=== PATIENT | female | born 1935 | race Caucasian/White ===

== ENCOUNTER → 2017-11-30 | Outpatient (CLI) | payer MEDICARE ==
--- NOTE | 2017-11-30 14:22 | Diagnostic Imaging Report ---
PROCEDURE: Frontal and lateral views of the chest. COMPARISON: Patients [facility], DX, CHEST 2 VIEWS, 12/22/2013, 11:57. Patients [facility], DX, CHEST 2 VIEWS, 04/14/2015, 13:01. INDICATIONS: SHORTNESS OF BREATH FINDINGS: Lines/tubes: None. Lungs: The lungs are well inflated. Stable 5-6 mm nodular density in the left upper to mid lung since 2013, likely representing a calcified granuloma. There is no evidence of pneumonia or pulmonary edema. Pleura: There is no pleural effusion or pneumothorax. Heart and mediastinum: Stable mild enlargement of the cardiac silhouette, with prominence of the left ventricle. Pulmonary vasculature is normal. Bones: No acute bony abnormality. Degenerative changes in the thoracic spine. Generalized osteopenia. IMPRESSION: 1. stable mild enlargement of the cardiac silhouette, without acute cardiopulmonary abnormalities. Tye Gaston M.D. Dictated by: Tye Gaston M.D. on 11/30/2017 at 14:26 Electronically approved by: Tye Gaston M.D. on 11/30/2017 at 14:26
== END ==
LOC: RAD 12:39
PROVIDERS: ATTEND Family Medicine
DX: R06.02 Shortness of breath (principal)
CPT/HCPCS: 71046

== ENCOUNTER → 2018-02-28 | Outpatient (CLI) | payer MEDICARE ==
--- NOTE | 2018-02-28 11:37 | Diagnostic Imaging Report ---
Radiographs of the sinuses - 4 views HISTORY: Headache COMPARISON: None available. FINDINGS: Bones: No acute displaced fracture. Osseous alignment is within normal limits. Joints: The joint spaces are well-maintained. Soft tissues: Apparent mucosal thickening in the maxillary sinuses IMPRESSION: Apparent mucosal thickening in the maxillary sinuses. CT scan of the sinuses may be of benefit. Signed by: Dr. Chad Aguirre M.D. on 02/28/2018 11:33 AM
--- NOTE | 2018-02-28 12:00 | Diagnostic Imaging Report ---
Radiographs of the lumbar spine - 6 views with bilateral obliques. Radiographs of the thoracic spine 3 views HISTORY: Pain COMPARISON: None available. FINDINGS: Bones: No acute displaced fracture. Mild rotatory scoliosis concave to the right centered at L3. Joints: Scattered degenerative changes are seen about the thoracic and lumbar spine. This is most pronounced at L3/4. No pars interarticularis defects. Moderate facet arthrosis at the lower lumbar spine. Soft tissues: Scattered vascular calcifications. IMPRESSION: Scattered degenerative changes are seen about the thoracic and lumbar spine. This is most pronounced at L3/4. No pars interarticularis defects. Moderate facet arthrosis at the lower lumbar spine. Mild rotatory scoliosis concave to the right centered at L3. Signed by: Dr. Chad Aguirre M.D. on 02/28/2018 11:56 AM
== END ==
LOC: RAD 10:05
PROVIDERS: ATTEND Family Medicine
DX: R51 Headache (principal); M54.6 Pain in thoracic spine; M54.5 Low back pain
CPT/HCPCS: 70220; 72070; 72110

== ENCOUNTER → 2019-01-01 | Outpatient (CLI) | payer MEDICARE ==
--- NOTE | 2019-01-01 13:44 | Diagnostic Imaging Report ---
EXAMINATION: PA and lateral views of the chest. COMPARISON: Thoracic spine views 02/28/2018 CLINICAL HISTORY: Shortness of breath, mild chest pain when walking long distance, CHF DISCUSSION: Lines/tubes: None. Lungs: The lungs are well inflated. Stable 3 mm nodular density projecting over the posterolateral aspect of the right fifth rib in the right upper lobe. There is no evidence of pneumonia or pulmonary edema. Pleura: There is no pleural effusion or pneumothorax. Heart and mediastinum: Mild enlargement of the cardiac silhouette. Pulmonary vasculature is normal. Atherosclerotic calcification of a tortuous thoracic aorta. Bones and soft tissues: No acute bony abnormalities. Degenerative changes in the thoracic spine IMPRESSION: Mild enlargement of the cardiac silhouette, without acute cardiopulmonary abnormalities. Stable 3 mm nodular density in the right upper lobe, which may represent a calcified granuloma. Recommend chest PA and lateral in 6-12 months to document stability. Signed by: Dr. Tye Gaston M.D. on 01/01/2019 1:41 PM
== END ==
LOC: RAD 11:31
PROVIDERS: ATTEND Internal Medicine
DX: I50.9 Heart failure, unspecified (principal)
CPT/HCPCS: 71046

== ENCOUNTER → 2020-06-14 | Outpatient (CLI) | payer MEDICARE | LOC: RAD 11:38 | PROVIDERS: ATTEND Internal Medicine | DX: I50.32 Chronic diastolic (congestive) heart failure (principal); M54.5 Low back pain | CPT/HCPCS: 71046; 72100 ==

== ENCOUNTER → 2020-10-05 | Outpatient (CLI) | payer MEDICARE | LOC: RAD 12:45 | PROVIDERS: ATTEND Internal Medicine | DX: S30.0XXA Contusion of lower back and pelvis, initial encounter (principal) | CPT/HCPCS: 72100; 72220 ==

== ENCOUNTER → 2020-10-08 | Outpatient (CLI) | payer MEDICARE | LOC: RAD 09:38 | PROVIDERS: ATTEND Internal Medicine | DX: S30.0XXA Contusion of lower back and pelvis, initial encounter (principal) | CPT/HCPCS: 72170 ==

== ENCOUNTER 2021-02-26 18:04 | Emergency (ER) | payer MEDICARE ==
[~2021-02-26] VITALS: Ht 165.1 cm; Wt 65.8 kg
[2021-02-26] MEDS ORDERED: CASIRIVIMAB/IMDEVIMAB 10 ML in SODIUM CHLORIDE 0.9% 100 ML IV ONE (20:00)
== END 2021-02-26 21:12 | disposition home or self-care (01) ==
LOC: ER 18:10
DX: R53.83 Other fatigue (principal); I10 Essential (primary) hypertension; I48.91 Unspecified atrial fibrillation; Z20.822 Contact with and (suspected) exposure to COVID-19
CPT/HCPCS: 99283; J7050; U0002

== ENCOUNTER → 2021-12-26 | Outpatient (CLI) | payer MEDICARE ==
[~2021-12-26] MED LIST: CLINDAMYCIN HC300 MG PO
== END ==
LOC: US 09:20
PROVIDERS: ATTEND Internal Medicine
DX: R10.10 Upper abdominal pain, unspecified (principal)
CPT/HCPCS: 76705

== ENCOUNTER 2022-01-01 14:55 | Emergency (ER) | payer MEDICARE, OTHER ==
[~2022-01-01] VITALS: Ht 165.1 cm; Wt 65.8 kg
[2022-01-01] MEDS ORDERED: TRAMADOL HCL 50 MG TAB PO ONE (15:15)
[2022-01-01] MEDS ORDERED: CYCLOBENZAPRINE HCL 10 MG TAB PO ONE (15:30)
[2022-01-01] MEDS ORDERED: CYCLOBENZAPRINE5 MG PO (17:39)
== END 2022-01-01 18:55 | disposition home or self-care (01) ==
LOC: ER 15:07
DX: M54.50 Low back pain, unspecified (principal); W01.0XXA Fall on same level from slipping, tripping and stumbling without subsequent striking against object, initial encounter; Y92.89 Other specified places as the place of occurrence of the external cause; I10 Essential (primary) hypertension; I48.91 Unspecified atrial fibrillation; Z87.19 Personal history of other diseases of the digestive system
CPT/HCPCS: 71111; 72131; 74176; 99283

== ENCOUNTER 2022-01-05 12:31 | Inpatient (IN) | payer MEDICARE ==
[~2022-01-05] VITALS: Ht 165.1 cm; Wt 63.5 kg
[~2022-01-05 12:31] MED LIST changes: +CYCLOBENZAPRINE5 MG PO
[2022-01-05 14:59] VITALS: BP 153/85
[2022-01-05] MEDS ORDERED: HYDROMORPHONE 1MG/1ML INJ IV PRN (15:00)
[2022-01-05 15:03] VITALS: BP 153/85
[2022-01-05] MEDS ORDERED: DIATRIZOATE MEGL/DIATRIZOA SOD 30 ML BTL PO ONE (15:29)
[2022-01-05 15:33] LABS: BASOPHILS # (AUTO) 0.1 (0.0-0.1); BASOPHILS % 0.6 % (0.0-1.0); EOSINOPHILS # (AUTO) 0.1 (0.0-0.4); EOSINOPHILS % 0.8 % (0.0-6.0); HEMOGLOBIN 12.9 g/dL (12.0-16.0); LYMPHOCYTES # (AUTO) 1.1 (1.0-3.2); LYMPHOCYTES % 12.7 % (18.0-39.1); MEAN CORPUSCULAR HEMOGLOBIN 31.6 pg (28-32); MEAN CORPUSCULAR HGB CONC 35.8 g/dL (31-35); MEAN CORPUSCULAR VOLUME 88.2 fL (81-99); MONOCYTES # (AUTO) 1.1 (0.2-0.8); MONOCYTES % 12.4 % (4.4-11.3); NEUTROPHILS # (AUTO) 6.4 (2.1-6.9); NEUTROPHILS % 72.8 % (38.7-80.0); PLATELET COUNT 255 x10e3/uL (140-360); RED BLOOD COUNT 4.08 x10e6/uL (3.6-5.1)
[2022-01-05 15:57] LABS: ALBUMIN 3.3 g/dL (3.5-5.0); ALBUMIN/GLOBULIN RATIO 1.1 (0.8-2.0); ANION GAP 12.7 mmol/L (8-16); CALCIUM 8.3 mg/dL (8.4-10.2); CREATININE, SERUM 0.65 mg/dL (0.57-1.11); POTASSIUM 4.7 mmol/L (3.5-5.1)
[2022-01-05 15:58] VITALS: BP 153/85
[2022-01-05] MEDS ORDERED: CARAFATE1 GM PO (16:09)
[2022-01-05] MEDS ORDERED: ATENOLOL50 MG PO (16:12)
[2022-01-05] MEDS ORDERED: CYCLOBENZAPRINE10 MG PO (16:12)
[2022-01-05] MEDS ORDERED: ALLOPURINOL300 MG PO (16:12)
[2022-01-05] MEDS ORDERED: ELIQUIS2.5 MG PO (16:19)
[2022-01-05] MEDS ORDERED: BENICAR20 MG PO (16:20)
[2022-01-05] MEDS: SODIUM CHLORIDE 0.9% 1000ML 1,000 ML IV SCH (16:21)
[2022-01-05] MEDS ORDERED: PROTONIX20 MG PO (16:25)
[2022-01-05] MEDS ORDERED: FAMOTIDINE20 MG PO (16:28)
[2022-01-05] MEDS ORDERED: CIPRO250 MG PO (16:29)
[2022-01-05] MEDS ORDERED: METRONIDAZOLE250 MG PO (16:30)
[2022-01-05] MEDS ORDERED: PRESERVISION A1 EAC2 PO (16:33)
[2022-01-05] MEDS ORDERED: D3-5000125 MCG PO (16:33)
[2022-01-05] MEDS ORDERED: IOPAMIDOL 370 MG/ML 100 ML INFUS..BTL INJ ONE (16:36)
[2022-01-05] MEDS ORDERED: STOOL SOFTENER1 EAC2 PO (16:37)
[2022-01-05 20:00] VITALS: BP_SYST 142; BP_SYST 153; BP_DIAS 73; BP_DIAS 85
[2022-01-05 20:22] LABS: AMYLASE 19 U/L (25-125); LIPASE 12 U/L (8-78)
[2022-01-05 20:24] LABS: BLOOD UREA NITROGEN 9 mg/dL (7-26); GLUCOSE 95 mg/dL (74-118); OSMOLALITY,SERUM 235 mOsm/kg (278-305)
[2022-01-05 20:40] LABS: SODIUM 117 mmol/L (136-145)
[2022-01-05 20:41] LABS: THYROID STIMULATING HORMONE 1.745 uIU/mL (0.350-4.940)
[2022-01-05] MEDS: SENNOSIDES 8.6 MG TAB PO SCH (21:09)
[2022-01-05] MEDS: ATENOLOL 50 MG TAB PO SCH (21:11)
[2022-01-05] MEDS: ONDANSETRON HCL INJ 2MG/ML 2ML 2 MG/ML VIAL IV PRN (21:12)
[2022-01-06] VITALS: BP 121/68
[2022-01-06 04:00] VITALS: BP 161/72
[2022-01-06 04:49] LABS: BASOPHILS # (AUTO) 0.1 (0.0-0.1); BASOPHILS % 0.6 % (0.0-1.0); EOSINOPHILS # (AUTO) 0.1 (0.0-0.4); EOSINOPHILS % 1.2 % (0.0-6.0); HEMATOCRIT 36.8 % (34.2-44.1); LYMPHOCYTES # (AUTO) 1.8 (1.0-3.2); LYMPHOCYTES % 18.2 % (18.0-39.1); MEAN CORPUSCULAR HEMOGLOBIN 31.4 pg (28-32); MEAN CORPUSCULAR HGB CONC 35.3 g/dL (31-35); MEAN CORPUSCULAR VOLUME 88.9 fL (81-99); MONOCYTES # (AUTO) 1.7 (0.2-0.8); MONOCYTES % 17.3 % (4.4-11.3); NEUTROPHILS # (AUTO) 6.2 (2.1-6.9); NEUTROPHILS % 62.1 % (38.7-80.0); PLATELET COUNT 281 x10e3/uL (140-360); RED BLOOD COUNT 4.14 x10e6/uL (3.6-5.1); RED CELL DISTRIBUTION WIDTH 12.4 % (11.7-14.4)
[2022-01-06] MEDS: SODIUM CHLORIDE 0.9% 1000ML 1,000 ML IV SCH ×2 (04:50→07:45)
[2022-01-06 05:20] LABS: ALBUMIN 3.5 g/dL (3.5-5.0); ALBUMIN/GLOBULIN RATIO 0.9 (0.8-2.0); ANION GAP 19.3 mmol/L (8-16); CALCIUM 8.5 mg/dL (8.4-10.2); CREATININE, SERUM 0.64 mg/dL (0.57-1.11); POTASSIUM 4.3 mmol/L (3.5-5.1)
[2022-01-06 08:10] LABS: CLARITY,URINE CLEAR (CLEAR); COLOR,URINE YELLOW (YELLOW); LEUKOCYTE ESTERASE ,URINE NEGATIVE (NEGATIVE); NITRITE,URINE NEGATIVE (NEGATIVE)
[2022-01-06 08:11] LABS: BACTERIA,URINE FEW /HPF; EPITHELIAL CELLS,URINE FEW /LPF; KETONES,URINE NEGATIVE (NEGATIVE); PROTEIN,URINE DIPSTICK NEGATIVE (NEGATIVE); RBC,URINE 0-5 /HPF (0-5); URINE UROBILINOGEN 0.2 mg/dL (0.2 - 1); WBC,URINE (MAN) 0-5 /HPF (0-5)
[2022-01-06 08:40] LABS: POTASSIUM,URINE 9.3 mmol/L
[2022-01-06 08:47] LABS: SODIUM,URINE < 20 mmol/L
[2022-01-06] MEDS ORDERED: OLMESARTAN 20 MG TAB PO SCH (09:00)
[2022-01-06 09:09] VITALS: BP 161/73
[2022-01-06 09:24] VITALS: BP 161/73
[2022-01-06] MEDS: ATENOLOL 50 MG TAB PO SCH ×2 (09:37→16:50)
[2022-01-06] MEDS: SENNOSIDES 8.6 MG TAB PO SCH ×2 (09:38→21:25)
[2022-01-06] MEDS: PANTOPRAZOLE SOD 40 MG TABEC PO SCH (09:38)
[2022-01-06 12:21] VITALS: BP 170/74
[2022-01-06 20:00] VITALS: BP 141/81
[2022-01-06] MEDS ORDERED: FUROSEMIDE INJ 10 MG/ML 4 ML VIAL IV ONE (20:15)
[2022-01-06] MEDS: LEVOFLOXACIN 500MG/D5W 100ML 100 ML IV SCH (21:24)
[2022-01-06] MEDS: OLMESARTAN 20 MG TAB PO SCH (21:25)
[2022-01-06] MEDS: METRONIDAZOLE 250MG/NS 50ML 50 ML IV SCH (23:06)
[2022-01-06] MEDS ORDERED: SODIUM CHLORIDE 0.9% 100 ML ONE (23:08)
[2022-01-07] VITALS (7 sets, daily range): BP systolic 99–151; BP diastolic 58–69
[2022-01-07] MEDS: METRONIDAZOLE 250MG/NS 50ML 50 ML IV SCH ×3 (05:14→22:00)
[2022-01-07 05:51] LABS: BASOPHILS # (AUTO) 0.1 (0.0-0.1); BASOPHILS % 0.5 % (0.0-1.0); EOSINOPHILS # (AUTO) 0.1 (0.0-0.4); EOSINOPHILS % 0.9 % (0.0-6.0); HEMATOCRIT 42.4 % (34.2-44.1); LYMPHOCYTES # (AUTO) 1.4 (1.0-3.2); LYMPHOCYTES % 14.4 % (18.0-39.1); MEAN CORPUSCULAR HEMOGLOBIN 31.3 pg (28-32); MEAN CORPUSCULAR HGB CONC 36.1 g/dL (31-35); MEAN CORPUSCULAR VOLUME 86.7 fL (81-99); MONOCYTES # (AUTO) 1.3 (0.2-0.8); MONOCYTES % 12.8 % (4.4-11.3); NEUTROPHILS % 70.6 % (38.7-80.0); PLATELET COUNT 356 x10e3/uL (140-360); RED BLOOD COUNT 4.89 x10e6/uL (3.6-5.1)
[2022-01-07 06:10] LABS: HEMOGLOBIN 15.3 g/dL (12.0-16.0)
[2022-01-07 06:15] LABS: ANION GAP 17.9 mmol/L (8-16); CALCIUM 9.4 mg/dL (8.4-10.2); CREATININE, SERUM 0.8 mg/dL (0.57-1.11); POTASSIUM 4.9 mmol/L (3.5-5.1)
[2022-01-07] MEDS: PANTOPRAZOLE SOD 40 MG TABEC PO SCH (08:35)
[2022-01-07] MEDS: ATENOLOL 50 MG TAB PO SCH ×2 (08:35→16:39)
[2022-01-07] MEDS: SENNOSIDES 8.6 MG TAB PO SCH ×2 (08:35→21:00)
[2022-01-07] MEDS ORDERED: FUROSEMIDE INJ 10 MG/ML 4 ML VIAL IV ONE (09:15)
[2022-01-07] MEDS ORDERED: BISACODYL 5 MG TAB EC PO ONE (09:30)
[2022-01-07] MEDS ORDERED: MAGNESIUM HYDROXIDE 30 ML UDC PO ONE (09:30)
[2022-01-07] MEDS ORDERED: systane OU (11:29)
[2022-01-07] MEDS: HYDROCODONE/APAP 7.5MG-325MG 1 EA TAB PO PRN (12:40)
[2022-01-07] MEDS: SYSTANE EYE OP SCH ×2 (14:23→21:00)
[2022-01-07] MEDS: ONDANSETRON HCL INJ 2MG/ML 2ML 2 MG/ML VIAL IV PRN (14:30)
[2022-01-07] MEDS: LEVOFLOXACIN 500MG/D5W 100ML 100 ML IV SCH (20:30)
[2022-01-07] MEDS: OLMESARTAN 20 MG TAB PO SCH (21:00)
[2022-01-08] VITALS (8 sets, daily range): BP systolic 112–134; BP diastolic 57–82
[2022-01-08] MEDS: METRONIDAZOLE 250MG/NS 50ML 50 ML IV SCH ×3 (05:07→21:52)
[2022-01-08 06:24] LABS: BASOPHILS # (AUTO) 0.1 (0.0-0.1); BASOPHILS % 0.5 % (0.0-1.0); EOSINOPHILS # (AUTO) 0.1 (0.0-0.4); EOSINOPHILS % 1.2 % (0.0-6.0); HEMATOCRIT 41.2 % (34.2-44.1); HEMOGLOBIN 14.8 g/dL (12.0-16.0); LYMPHOCYTES # (AUTO) 1.9 (1.0-3.2); LYMPHOCYTES % 18.2 % (18.0-39.1); MEAN CORPUSCULAR HEMOGLOBIN 31.4 pg (28-32); MEAN CORPUSCULAR HGB CONC 35.9 g/dL (31-35); MEAN CORPUSCULAR VOLUME 87.5 fL (81-99); MONOCYTES # (AUTO) 1.4 (0.2-0.8); MONOCYTES % 13.3 % (4.4-11.3); NEUTROPHILS # (AUTO) 6.9 (2.1-6.9); PLATELET COUNT 323 x10e3/uL (140-360); RED BLOOD COUNT 4.71 x10e6/uL (3.6-5.1); RED CELL DISTRIBUTION WIDTH 12.1 % (11.7-14.4)
[2022-01-08 06:49] LABS: ALBUMIN 3.6 g/dL (3.5-5.0); ANION GAP 15.4 mmol/L (8-16); CALCIUM 9.1 mg/dL (8.4-10.2); CREATININE, SERUM 0.94 mg/dL (0.57-1.11); POTASSIUM 4.4 mmol/L (3.5-5.1)
[2022-01-08] MEDS: SENNOSIDES 8.6 MG TAB PO SCH ×2 (09:00→21:51)
[2022-01-08] MEDS: SYSTANE EYE OP SCH ×3 (09:00→21:00)
[2022-01-08] MEDS: PANTOPRAZOLE SOD 40 MG TABEC PO SCH (09:11)
[2022-01-08] MEDS: ATENOLOL 50 MG TAB PO SCH ×2 (09:12→16:45)
[2022-01-08] MEDS: SODIUM CHLORIDE 1 GM TAB PO SCH ×2 (14:03→21:50)
[2022-01-08] MEDS: ONDANSETRON HCL INJ 2MG/ML 2ML 2 MG/ML VIAL IV PRN (15:00)
[2022-01-08] MEDS: OLMESARTAN 20 MG TAB PO SCH (21:50)
[2022-01-08] MEDS: LEVOFLOXACIN 500MG/D5W 100ML 100 ML IV SCH (21:51)
[2022-01-09] VITALS (10 sets, daily range): BP systolic 115–154; BP diastolic 46–76
[2022-01-09] MEDS: HYDROCODONE/APAP 7.5MG-325MG 1 EA TAB PO PRN ×2 (05:36→18:33)
[2022-01-09] MEDS: METRONIDAZOLE 250MG/NS 50ML 50 ML IV SCH ×3 (05:37→20:42)
[2022-01-09 06:02] LABS: BASOPHILS % 0.5 % (0.0-1.0); EOSINOPHILS # (AUTO) 0.1 (0.0-0.4); EOSINOPHILS % 0.6 % (0.0-6.0); HEMATOCRIT 37.2 % (34.2-44.1); HEMOGLOBIN 13.7 g/dL (12.0-16.0); LYMPHOCYTES # (AUTO) 1.4 (1.0-3.2); LYMPHOCYTES % 16.2 % (18.0-39.1); MEAN CORPUSCULAR HEMOGLOBIN 31.8 pg (28-32); MEAN CORPUSCULAR HGB CONC 36.8 g/dL (31-35); MEAN CORPUSCULAR VOLUME 86.3 fL (81-99); MONOCYTES # (AUTO) 1.2 (0.2-0.8); MONOCYTES % 13.7 % (4.4-11.3); NEUTROPHILS # (AUTO) 5.9 (2.1-6.9); PLATELET COUNT 336 x10e3/uL (140-360); RED BLOOD COUNT 4.31 x10e6/uL (3.6-5.1); RED CELL DISTRIBUTION WIDTH 12.2 % (11.7-14.4)
[2022-01-09 06:18] LABS: ANION GAP 11.7 mmol/L (8-16); CALCIUM 8.4 mg/dL (8.4-10.2); CREATININE, SERUM 0.73 mg/dL (0.57-1.11); POTASSIUM 3.7 mmol/L (3.5-5.1)
[2022-01-09] MEDS: SENNOSIDES 8.6 MG TAB PO SCH ×2 (08:57→20:38)
[2022-01-09] MEDS: PANTOPRAZOLE SOD 40 MG TABEC PO SCH (08:57)
[2022-01-09] MEDS: SODIUM CHLORIDE 1 GM TAB PO SCH ×3 (08:57→20:38)
[2022-01-09] MEDS: ATENOLOL 50 MG TAB PO SCH ×2 (08:58→17:29)
[2022-01-09] MEDS: SYSTANE EYE OP SCH ×3 (09:00→20:42)
[2022-01-09] MEDS: APIXAB 2.5 MG TABLET PO SCH ×2 (11:06→17:28)
[2022-01-09] MEDS: LEVOFLOXACIN 500MG/D5W 100ML 100 ML IV SCH (20:41)
[2022-01-09] MEDS: OLMESARTAN 20 MG TAB PO SCH (20:41)
[2022-01-09] MEDS ORDERED: SODIUM CHLORIDE 0.9% 250ML 250 ML ONE (21:03)
[2022-01-10] VITALS (7 sets, daily range): BP systolic 115–167; BP diastolic 65–89
[2022-01-10] MEDS: METRONIDAZOLE 250MG/NS 50ML 50 ML IV SCH ×3 (05:41→21:26)
[2022-01-10 06:07] LABS: BASOPHILS # (AUTO) 0.1 (0.0-0.1); BASOPHILS % 0.6 % (0.0-1.0); EOSINOPHILS # (AUTO) 0.1 (0.0-0.4); EOSINOPHILS % 0.9 % (0.0-6.0); HEMATOCRIT 37.7 % (34.2-44.1); HEMOGLOBIN 13.3 g/dL (12.0-16.0); LYMPHOCYTES # (AUTO) 1.5 (1.0-3.2); LYMPHOCYTES % 15.8 % (18.0-39.1); MEAN CORPUSCULAR HEMOGLOBIN 31.3 pg (28-32); MEAN CORPUSCULAR HGB CONC 35.3 g/dL (31-35); MEAN CORPUSCULAR VOLUME 88.7 fL (81-99); MONOCYTES # (AUTO) 1.3 (0.2-0.8); MONOCYTES % 13.5 % (4.4-11.3); NEUTROPHILS # (AUTO) 6.3 (2.1-6.9); NEUTROPHILS % 68.4 % (38.7-80.0); PLATELET COUNT 328 x10e3/uL (140-360); RED BLOOD COUNT 4.25 x10e6/uL (3.6-5.1); RED CELL DISTRIBUTION WIDTH 12.3 % (11.7-14.4)
[2022-01-10 06:45] LABS: ANION GAP 13.1 mmol/L (8-16); CALCIUM 8.3 mg/dL (8.4-10.2); CREATININE, SERUM 0.7 mg/dL (0.57-1.11); POTASSIUM 4.1 mmol/L (3.5-5.1)
[2022-01-10] MEDS: PANTOPRAZOLE SOD 40 MG TABEC PO SCH (09:17)
[2022-01-10] MEDS: ATENOLOL 50 MG TAB PO SCH ×2 (09:17→17:09)
[2022-01-10] MEDS: SENNOSIDES 8.6 MG TAB PO SCH ×2 (09:17→21:24)
[2022-01-10] MEDS: SODIUM CHLORIDE 1 GM TAB PO SCH ×3 (09:17→21:25)
[2022-01-10] MEDS: APIXAB 2.5 MG TABLET PO SCH ×2 (09:17→17:09)
[2022-01-10] MEDS: SYSTANE EYE OP SCH ×3 (09:18→21:27)
[2022-01-10] MEDS: LEVOFLOXACIN 500MG/D5W 100ML 100 ML IV SCH (21:24)
[2022-01-10] MEDS: OLMESARTAN 20 MG TAB PO SCH (21:25)
[2022-01-11] VITALS (7 sets, daily range): BP systolic 120–181; BP diastolic 52–96
[2022-01-11] MEDS: METRONIDAZOLE 250MG/NS 50ML 50 ML IV SCH ×2 (00:03→06:13)
[2022-01-11 06:22] LABS: BASOPHILS # (AUTO) 0.1 (0.0-0.1); BASOPHILS % 0.9 % (0.0-1.0); EOSINOPHILS # (AUTO) 0.1 (0.0-0.4); EOSINOPHILS % 1.5 % (0.0-6.0); HEMATOCRIT 35.3 % (34.2-44.1); HEMOGLOBIN 12.5 g/dL (12.0-16.0); LYMPHOCYTES # (AUTO) 1.7 (1.0-3.2); LYMPHOCYTES % 19.3 % (18.0-39.1); MEAN CORPUSCULAR HEMOGLOBIN 31.3 pg (28-32); MEAN CORPUSCULAR HGB CONC 35.4 g/dL (31-35); MEAN CORPUSCULAR VOLUME 88.5 fL (81-99); MONOCYTES # (AUTO) 1.1 (0.2-0.8); MONOCYTES % 12.9 % (4.4-11.3); NEUTROPHILS # (AUTO) 5.6 (2.1-6.9); NEUTROPHILS % 64.5 % (38.7-80.0); PLATELET COUNT 316 x10e3/uL (140-360); RED BLOOD COUNT 3.99 x10e6/uL (3.6-5.1); RED CELL DISTRIBUTION WIDTH 12.5 % (11.7-14.4)
[2022-01-11 06:57] LABS: ANION GAP 11.2 mmol/L (8-16); CREATININE, SERUM 0.71 mg/dL (0.57-1.11); POTASSIUM 4.2 mmol/L (3.5-5.1)
[2022-01-11] MEDS: PANTOPRAZOLE SOD 40 MG TABEC PO SCH (09:49)
[2022-01-11] MEDS: SODIUM CHLORIDE 1 GM TAB PO SCH ×3 (09:49→21:31)
[2022-01-11] MEDS: ATENOLOL 50 MG TAB PO SCH ×2 (09:50→17:40)
[2022-01-11] MEDS: SENNOSIDES 8.6 MG TAB PO SCH ×2 (09:50→21:31)
[2022-01-11] MEDS: APIXAB 2.5 MG TABLET PO SCH ×2 (09:50→17:40)
[2022-01-11] MEDS: SYSTANE EYE OP SCH ×3 (09:51→21:31)
[2022-01-11] MEDS ORDERED: ONDANSETRON HCL 4 MG ORAL DISINTEGRATING TAB PO PRN (10:30)
[2022-01-11] MEDS: FUROSEMIDE 40 MG TAB PO SCH (12:59)
[2022-01-11] MEDS ORDERED: METRONIDAZOLE 250 MG TAB PO SCH (14:00)
[2022-01-11] MEDS: HYDROCODONE/APAP 7.5MG-325MG 1 EA TAB PO PRN (14:32)
[2022-01-11] MEDS: METRONIDAZOLE 500 MG TAB PO SCH ×2 (14:59→21:31)
[2022-01-11] MEDS ORDERED: LEVOFLOXACIN 500 MG TAB PO SCH (21:00)
[2022-01-11] MEDS: OLMESARTAN 20 MG TAB PO SCH (21:32)
[2022-01-12] VITALS: BP 153/63
[2022-01-12 04:00] VITALS: BP 165/72
[2022-01-12] MEDS: METRONIDAZOLE 500 MG TAB PO SCH (05:19)
[2022-01-12 05:58] LABS: BASOPHILS # (AUTO) 0.1 (0.0-0.1); EOSINOPHILS # (AUTO) 0.2 (0.0-0.4); HEMATOCRIT 37.3 % (34.2-44.1); HEMOGLOBIN 13.2 g/dL (12.0-16.0); LYMPHOCYTES # (AUTO) 1.7 (1.0-3.2); LYMPHOCYTES % 21.7 % (18.0-39.1); MEAN CORPUSCULAR HEMOGLOBIN 30.8 pg (28-32); MEAN CORPUSCULAR HGB CONC 35.4 g/dL (31-35); MEAN CORPUSCULAR VOLUME 86.9 fL (81-99); NEUTROPHILS # (AUTO) 4.9 (2.1-6.9); NEUTROPHILS % 61.5 % (38.7-80.0); PLATELET COUNT 327 x10e3/uL (140-360); RED BLOOD COUNT 4.29 x10e6/uL (3.6-5.1); RED CELL DISTRIBUTION WIDTH 12.6 % (11.7-14.4)
[2022-01-12 06:24] LABS: CALCIUM 8.6 mg/dL (8.4-10.2); CREATININE, SERUM 0.65 mg/dL (0.57-1.11)
[2022-01-12 08:00] VITALS: BP 161/77
[2022-01-12] MEDS: SYSTANE EYE OP SCH ×2 (09:00→14:51)
[2022-01-12] MEDS: SENNOSIDES 8.6 MG TAB PO SCH (09:32)
[2022-01-12] MEDS: SODIUM CHLORIDE 1 GM TAB PO SCH ×2 (09:32→16:45)
[2022-01-12] MEDS: FUROSEMIDE 40 MG TAB PO SCH (09:32)
[2022-01-12] MEDS: PANTOPRAZOLE SOD 40 MG TABEC PO SCH (09:32)
[2022-01-12] MEDS: APIXAB 2.5 MG TABLET PO SCH ×2 (09:32→16:45)
[2022-01-12] MEDS: ATENOLOL 50 MG TAB PO SCH ×2 (09:32→16:46)
[2022-01-12 09:43] VITALS: BP 161/77
[2022-01-12 11:30] VITALS: BP 154/57
[2022-01-12] MEDS: HYDROCODONE/APAP 7.5MG-325MG 1 EA TAB PO PRN (13:45)
[2022-01-12 16:28] VITALS: BP 129/62
== END 2022-01-12 17:34 | DRG 391 ==
LOC: MED/SURG 14:33 → MED/SURG2 01-06 14:54
PROVIDERS: ADMIT Internal Medicine; ATTEND Internal Medicine
DX: K57.92 Diverticulitis of intestine, part unspecified, without perforation or abscess without bleeding (principal); I50.33 Acute on chronic diastolic (congestive) heart failure; I50.32 Chronic diastolic (congestive) heart failure; E22.2 Syndrome of inappropriate secretion of antidiuretic hormone; I11.0 Hypertensive heart disease with heart failure; R29.6 Repeated falls; K57.30 Diverticulosis of large intestine without perforation or abscess without bleeding; I48.0 Paroxysmal atrial fibrillation; Z79.01 Long term (current) use of anticoagulants; K59.00 Constipation, unspecified; R33.9 Retention of urine, unspecified; R56.9 Unspecified convulsions; M51.36 Other intervertebral disc degeneration, lumbar region; I35.0 Nonrheumatic aortic (valve) stenosis; Z20.822 Contact with and (suspected) exposure to COVID-19
CPT/HCPCS: 36415; 70450; 71045; 71046; 74177; 78227; 80048; 80053; 81001; 82150; 82947; 83690; 83880; 83935; 84133; 84295; 84300; 84443; 84520; 84550; 85025; 87086; 93005; 99251; A9537; J1170; J1940; J1956; J2405; J7030; J7050; Q9963; Q9967

== ENCOUNTER 2024-02-05 11:28 | Emergency (ER) | payer MEDICARE ==
[~2024-02-05] VITALS: Ht 165.1 cm; Wt 63.5 kg
[~2024-02-05 11:28] MED LIST changes: +ALLOPURINOL300 MG PO; +ATENOLOL50 MG PO; +BENICAR20 MG PO; +CARAFATE1 GM PO; +CIPRO250 MG PO; +CYCLOBENZAPRINE10 MG PO; +D3-5000125 MCG PO; +ELIQUIS2.5 MG PO; +FAMOTIDINE20 MG PO; +METRONIDAZOLE250 MG PO; +PRESERVISION A1 EAC2 PO; +PROTONIX20 MG PO; +STOOL SOFTENER1 EAC2 PO; +systane OU
[2024-02-05] MEDS: SODIUM CHLORIDE 0.9% 1000ML 1,000 ML IV STA (12:48)
[2024-02-05 13:41] LABS: BASOPHILS # (AUTO) 0.1 (0.0-0.1); BASOPHILS % 0.5 % (0.0-1.0); EOSINOPHILS # (AUTO) 0.3 (0.0-0.4); EOSINOPHILS % 3.1 % (0.0-6.0); HEMATOCRIT 34.8 % (34.2-44.1); HEMOGLOBIN 11.4 g/dL (12.0-16.0); LYMPHOCYTES # (AUTO) 1.2 (1.0-3.2); LYMPHOCYTES % 12.9 % (18.0-39.1); MEAN CORPUSCULAR HEMOGLOBIN 31.6 pg (28-32); MEAN CORPUSCULAR HGB CONC 32.8 g/dL (31-35); MEAN CORPUSCULAR VOLUME 96.4 fL (81-99); MONOCYTES # (AUTO) 1.2 (0.2-0.8); MONOCYTES % 12.8 % (4.4-11.3); NEUTROPHILS # (AUTO) 6.5 (2.1-6.9); NEUTROPHILS % 70.3 % (38.7-80.0); PLATELET COUNT 201 x10e3/uL (140-360); RED BLOOD COUNT 3.61 x10e6/uL (3.6-5.1); RED CELL DISTRIBUTION WIDTH 15.7 % (11.7-14.4)
[2024-02-05 13:58] LABS: INR 1.37; PARTIAL THROMBOPLASTIN TIME 23.4 seconds (23.8-35.5); PROTHROMBIN TIME 17.6 seconds (11.9-14.5)
[2024-02-05 14:02] LABS: ALBUMIN 3.5 g/dL (3.5-5.0); ALBUMIN/GLOBULIN RATIO 1.1 (0.8-2.0); ANION GAP 14.8 mmol/L (8-16); BILIRUBIN,TOTAL 0.7 mg/dL (0.2-1.2); CALCIUM 9.3 mg/dL (8.4-10.2); CREATININE, SERUM 0.86 mg/dL (0.57-1.11); MAGNESIUM 1.6 MG/DL (1.3-2.1); POTASSIUM 4.8 mmol/L (3.5-5.1); TOTAL PROTEIN 6.8 g/dL (6.5-8.1)
[2024-02-05 14:09] LABS: TROPONIN I 0.022 ng/mL (0-0.300)
[2024-02-05 15:00] VITALS: PULSE 74; RESP 18; TEMP 98.3; O2SAT 98
== END 2024-02-05 15:00 | disposition home or self-care (01) ==
LOC: ER 11:40
DX: R19.5 Other fecal abnormalities (principal); T47.6X5A Adverse effect of antidiarrheal drugs, initial encounter; I10 Essential (primary) hypertension; I48.91 Unspecified atrial fibrillation; K21.9 Gastro-esophageal reflux disease without esophagitis; M54.9 Dorsalgia, unspecified; G89.29 Other chronic pain; Z87.19 Personal history of other diseases of the digestive system
CPT/HCPCS: 36415; 80053; 82550; 83735; 84484; 85025; 85610; 85730; 99283; J2470; J7030